=== PATIENT | female | born 1990 | race Caucasian/White ===

== ENCOUNTER 2025-05-15 18:31 | Emergency (ER) | payer BC ==
[~2025-05-15] VITALS: Ht 172.7 cm; Wt 81.0 kg
[2025-05-15 18:37] VITALS: O2SAT 98
[2025-05-15 19:44] LABS: BASOPHILS % 0.4 % (0.0-2.0); EOSINOPHILS % 0.8 % (0.0-5.0); HEMATOCRIT. 41.8 % (36.0-48.0); HEMOGLOBIN. 14.2 g/dL (12.0-16.0); LYMPHOCYTES % 24.4 % (20.0-50.0); MEAN PLATELET VOLUME 9.2 fl (7.4-10.4); MONOCYTES % 5.5 % (2.0-8.0); NEUTROPHILS % 68.9 % (40.0-76.0); PLATELET 266 x1000/uL (130-400); RED BLOOD CELL COUNT 4.45 mill/uL (4.2-5.4); RED CELL DISTRIBUTION WIDTH 13.1 % (11.6-14.6)
[2025-05-15 19:51] LABS: HCG SCREEN NEGATIVE
[2025-05-15 19:52] LABS: CREATININE 0.6 mg/dL (0.6-1.0); UREA NITROGEN BLOOD 9 mg/dL (9-23)
[2025-05-15 19:53] LABS: ETHANOL BLOOD < 10 mg/dL (<10)
[2025-05-15 19:54] LABS: ASPARTATE AMINOTRANSFERASE 20 IU/L (<34); BILIRUBIN DIRECT 0.2 mg/dL (<=3.0); BILIRUBIN TOTAL 0.7 mg/dL (0.1-1.0); PROTEIN TOTAL 7.4 g/dL (6.0-8.3)
[2025-05-15] MEDS: FAMOTIDINE 20MG/2ML VIAL IV ONE (21:29)
[2025-05-15] MEDS: METOCLOPRAMIDE HCL 10MG/2ML VIAL IV ONE (21:29)
[2025-05-15] MEDS: KETOROLAC 15MG/ML VIAL IV ONE (21:34)
[2025-05-15] MEDS: SODIUM CHLORIDE 0.9% 1,000 ML IV ONE (22:01)
[2025-05-15] MEDS ORDERED: FAMO20TA8 MT (22:39)
[2025-05-15] MEDS ORDERED: ONDA-239 PO (22:39)
[2025-05-15] MEDS ORDERED: ACET-2708 MT (22:39)
[2025-05-15 23:23] VITALS: BP 103/58; PULSE 63; RESP 16; TEMP 36.6; O2SAT 98
== END 2025-05-15 23:34 | disposition home or self-care (01) ==
LOC: ER 18:31
DX: K29.00 Acute gastritis without bleeding (principal); R51.9 Headache, unspecified; Z88.6 Allergy status to analgesic agent
CPT/HCPCS: 80076; 80048; 80320; 84703; 83690; 85025; 36415; 96374; 96375; 99284; J1308; J1885; J2765; J7030; Z7610 ×2; G0480